=== PATIENT | female | born 1995 | race Caucasian/White ===

== ENCOUNTER 2023-09-01 14:23 | Outpatient (REF) | payer OTHER, SELFPAY ==
[2023-09-01 18:53] LABS: TSH reflex Free T4 1.83 uIU/mL (0.32-4.0)
== END 2023-09-01 14:24 | disposition home or self-care (01) ==
LOC: HO.CHCLDS 14:23
PROVIDERS: Visit Provider Advanced Practice Midwife
DX: Z12.4 Encounter for screening for malignant neoplasm of cervix (principal); R53.83 Other fatigue
CPT/HCPCS: 36415; 84443; 88142

== ENCOUNTER 2024-09-01 14:22 | Outpatient (REF) | payer OTHER, SELFPAY ==
[2024-09-01 18:00] LABS: Hematocrit 41.4 % (37.0-47.0); Mean Corpuscular HGB Conc 33.8 g/dl (31.0-35.0); Mean Corpuscular Hemoglobin 31.3 pg (27.0-33.0); Mean Corpuscular Volume 92.6 fL (80.0-98.0); Mean Platelet Volume 12.2 fL (9.4-12.3); Platelet Count 228 X10*3/uL (160-400); Red Blood Count 4.47 X10*6/uL (4.20-5.50); Red Cell Distribution Width 12.1 % (11.0-16.0); White Blood Count 7.3 X10*3/uL (4.8-10.8)
[2024-09-01 18:12] LABS: Iron 115 mcg/dL (30-160); Percent Iron Saturation 43 % (15-50); Total Iron Binding Capacity 269 mcg/dL (228-428); Unsaturated Iron Binding 154 ug/dL
--- OUTSIDE RECORDS SUMMARY | 2024-09-01 18:13 | XMS_ITS | Encounter Summary ---
Author Organization [employer] [facility] Address [address] [place] [address] [address] [place] [address] Care Team Providers Care Fitness Club Manager Name Role Phone Tri Perez MD Primary Care Provider [phone] Encounter Details Date Type Department Care Team (Latest Contact Info) Description 09/01/2024 Travel Social History Tobacco Use Types Packs/Day Years Used Date Smoking Tobacco: Never Smokeless Tobacco: Never Alcohol Use Standard Drinks/Week Comments Yes 0 (1 standard drink = 0.6 oz pur e alcohol) Comments No Sex and Gender Information Value Date Recorded Sex Assigned at Female 04/21/2022 10:30 AM EDT Legal Sex Female 10:30 AM EDT Gender Identity Female 04/21/2022 10:30 AM EDT Sexual Orientation Straight 04/21/2022 10 :30 AM EDT documented as of this encounter Plan of Treatment Upcoming Encounters Date Type Department Care Team (Late st Contact Info) Description 11/08/2024 2:45 PM EDT Office Visit [facility] & PEDS [address] [place] [address] Tri Perez MD [address] [place] [address] documented as of this encounter Visit Diagnoses Not on filedocumented in this encounter Care Teams Fitness Club Manager Relationship Specialty Start Date End Date Tri Perez MD [address] [place] [address] PCP - General Internal Medicine 03/20/16 documented as of this encounter
--- OUTSIDE RECORDS SUMMARY | 2024-09-01 18:13 | XMS_ITS | Encounter Summary ---
Author Organization [employer] [facility] Address [address] [place] [address] Care Team Providers Care Spray Rig Operator Name Role Phone Tri Perez MD Primary Care Provider [phone] [phone] Encounter Details Date Type Department Care Team (Late st Contact Info) Description 11/03/2022 Orders Only [facility] MED & PEDS [address] [place] [address] Fior Lenz LPN Social History Tobacco Use Types Packs/Day Years Used Date Smoking Tobacco: Never Assessed Comments Unknown Sex and Gender Information Value Date Recorded Sex Assigned at Female 04/21/2022 10:30 AM EDT Legal Sex Female 10:30 AM EDT Gender Identity Female 04/21/2022 10:30 AM EDT Sexual Orientation Straight 04/21/2022 10 :30 AM EDT documented as of this encounter Plan of Treatment Upcoming Encounters Date Type Department Care Team (Late st Contact Info) Description 11/08/2024 2:45 PM EDT Office Visit [facility] [address] [place] [address] Tri Perez MD [address] [place] [address] documented as of this encounter Visit Diagnoses Not on filedocumented in this encounter Care Teams Spray Rig Operator Relationship Specialty Start Date End Date Tri Perez MD [address] [place] [address] PCP - General Internal Medicine 03/20/16 documented as of this encounter
--- OUTSIDE RECORDS SUMMARY | 2024-09-01 18:13 | XMS_ITS | Clinical Summary ---
Author Organization [employer] Address [address] [place] [address] [address] [place] [address] Care Team Providers Care Farm Technician Name Role Phone Tri Perez MD Primary Care Provider [phone] Allergies Active Allergy Reactions Criticality Noted Date Comments Phenytoin 09/01/2023 Medications Tri-Sprintec 0.18/0.215/0.25 MG-35 MCG tablet TAKE 1 TABLET BY MOUTH EVERY DAY 84 tablet 2 11/03/2022 Active Tri-Sprintec 0.18/0.215/0.25 MG-35 MCG tablet Take 1 tablet by mouth in the morning. 28 tablet 11 09/01/2023 Active Encounters Date Type Department Care Team Description 09/01/2024 1:45 PM EDT Office Visit [facility] MED & PEDS [address] [place] [address] Saranya Merrill CNM Menorrhagia with regular cycle (Primary Dx) 09/01/2024 Travel 07/08/2024 Travel 07/08/2024 Telephone [facility] [address] [place] [address] Tri Perez MD recall appt from Last 3 Months Social History Tobacco Use Types Packs/Day Years [...] Orientation Straight 04/21/2022 10 :30 AM EDT Last Filed Vital Signs Vital Sign Reading Time Taken Comments Blood Pressure 116/76 09/01/2024 2:06 PM EDT Pulse 76 09/01/2024 2:06 PM EDT Temperature 37.1 ??C (98.8 ??F) 09/01/2024 2:06 PM ED T Respiratory Rate 18 09/01/2024 2:06 PM EDT Oxygen Saturation 98% 09/01/2024 2:06 PM EDT Inhaled Oxygen Concentration - - Weight 83.5 kg (184 lb) 09/01/2024 2:06 PM EDT Height 172.7 cm (5' 8 ) 09/01/2024 2:06 PM EDT Body Mass Index 27.98 09/01/2024 2:06 PM EDT Plan of Treatment Upcoming Encounters Date Type Department Care Team (Late st Contact Info) Description 11/08/2024 2:45 PM EDT Office Visit [facility] MED & PEDS [address] [place] [address] Tri Perez MD [address] [place] [address] Health Maintenance Due Date Last Done Comments Depression Screening 1995 HIV Screening 1995 SDOH Screening 1995 Alcohol/Substance Use Screening 2007 Hepatitis C Screening 2013 COVID-19 Vaccine ( season) 2024 04/22/2021, 07/02/2020, 06/11/2020 Family Planning (PISQ) 09/01/2025 09/01/2024 Tobacco Screening 09/01/2025 09/01/2024 Pap Smear 08/31/2026 09/01/2023, 08/21/2020 DTaP/Tdap/Td Vaccines (8 - Td or Tdap) 12/08/2028 12/08/2018, 10/19/2006, 04/25/1999, Additional history exists Zoster Vaccines (1 of 2) 2045 RSV Patients and Patients Aged 60 years or older (1 - 1-dose 75+ series) 2070 HIB Vaccines Completed 02/16/1996, 07/24, 1995, Additional history exists IPV Vaccines Completed 04/25/1999, 07/24, 1995, Additional history exists Hepatitis A Vaccines Completed 09/01/2011, 02/07/20 11 Meningococcal Vaccine Completed 05/06/2012, 010 Hepatitis B Vaccines Completed 12/15/2018, 1995, 1995, Additional history exists Influenza Vaccine Completed 03/25/2024, , 04/30/2021, Additional history exists HPV Vaccines Aged Out No longer eligi ble based on patient's age to complete this topic Pneumococcal Vaccine: Pediatrics (0 to 5 Years) and At-Risk Patients (6 to 49) Years) Aged Out No longer eligible based on patient's age to complete this topic RSV under 20 months Aged Out No longe r eligible based on patient's age to complete this topic Rotavirus Vaccines Aged Out No longer eligible based on patient's age to complete this topic Procedures Procedure Name Priority Date/Time Associated Diagnosis Comments CBC Routine 09/01/2024 2:23 PM EDT Menorrhagia with regular cycle PAP SMEAR Routine 09/01/2023 1:32 PM EDT Cervical cancer screening from Last 3 Months or Most Recently Relevant to Health Maintenance Results * CBC (09/01/2024 2:23 PM EDT) White Blood Count 7.3 4.8 - 10.8 X10*3/uL [facility] Red Blood Count 4.47 4.20 - 5.50 X10*6/uL [facility] Hemoglobin 14.0 12.0 - 16.0 g/dl [facility] Hematocrit 41.4 37.0 - 47.0 % [facility] Mean Corpuscular Volume 92.6 80.0 - 98.0 fL [facility] Mean Corpuscular Hemoglobin 31.3 27.0 - 33.0 pg [facility] Mean Corpuscular HGB Conc 33.8 31.0 - 35.0 g/dl [facility] Red Cell Distribution Width 12.1 11.0 - 16.0 % [facility] Platelet Count 228 160 - 400 X10*3/uL [facility] Mean Platelet Volume 12.2 9.4 - 12.3 fL [facility] NRBC Pct Auto 0.0 0.0 - 0.2 /100WBC [facility] NRBC Abs Auto 0.000 0.0 - 0.012 X10*3/uL [facility] Blood Venous blood specimen / Unknown 09/01/2024 2:23 PM EDT 09/01/2024 5:37 PM EDT Saranya Merrill CNM LAB BLOOD ORDERABLES Yovana muñoz Result [facility] [address] [place] [phone] * Pap Smear (09/01/2023 1:32 PM EDT) Swab Cervix uteri structure / Unknown 09/01/2023 1:32 PM EDT 09/02/2023 12:25 PM EDT Narrative [facility] - 09/10/2023 8:25 AM EDT ----- ------- Name: Kanwal Wilhelm ?Age/Sex: 28/F ? : 1995 Unit#: [id number] ?? Attend Dr: SARANYA MERRILL CNM ?Re09/01/23 ?Status: DEP REF ? [facility] ? Disch: ? ----- ------- SPEC : [id number] ? RECD: 09/02/23-1224 ? STATUS: ??SOUT ? REQ NUM: [id number] ? MIN: 09/01/23-2 ? SUBM DR: SARANYA MERRILL CNM ? ENTERED: ??09/02/23-1301 ?SP TYPE: Pap Smr ?OTHR : ? ORDERED: ??Pap Smear ? Interpretation ?? Satisfactory for evaluation. ?? Negative for intraepithelial lesion or malignancy. ?Clinical Information LMP: Unknown date Previous PAP test: Unknown date/findings ? Material Received ?? ThinPrep-Vaginal/Cervical ----- ------- Signed (signature on file) JEFF Bill ([facility]) 09/10/23 0825 ? ----- ------- ? END OF REPORT ? us Saranya Merrill [facility] CYTOLOGY ORDERABLES F inal Result [facility] [address] [place] [address] [phone] from Last 3 Months or Most Recently Relevant to Health Maintenance Insurance , [address] [place] [address] Care Teams Farm Technician Relationship Specialty Start Date End Date Tri Perez MD [address] [place] [phone] PCP - General Internal Medicine 03/20/16
--- OUTSIDE RECORDS SUMMARY | 2024-09-01 18:13 | XMS_ITS | Encounter Summary ---
Author Organization [employer] Address [address] [facility] 7t [place] [address] Care Team Providers Care Negative Turner Apprentice Name Role Phone Tri Perez MD Primary Care Provider [phone] Encounter Details Date Type Department Care Team (Late st Contact Info) Description 09/01/2024 1:45 PM EDT Office Visit [facility] & PEDS [address] [place] [address] Saranya Guidry, ANGELA [address] [place] [address] Menorrhagia with regular cycle (Primary Dx) Social History Tobacco Use Types Packs/Day Years [...] AM EDT documented as of this encounter Last Filed Vital Signs Vital Sign Reading [...] Mass Index 27.98 09/01/2024 2:06 PM EDT documented in this encounter Progress Notes * Saranya Brea, MIGUELINAM - 09/01/2024 1:45 PM EDT Subjective Patient ID: Kanwal Wilhelm is a 29 y.o. female who presents for PROSTHETIST visit Pap NIL 08/2023. Pap NIL, normal pelvic ultrasound 08/2020. Tri-Sprintec rx'd at that visit. She opted not to start. Cramping much improved with menses, still notes heavy bleeding x 2-3 days. Monthly menses x 5d. Normal TSH 08/2022. ? Multinodular thyroid. Had one ultrasound a year or two ago, will schedule CPE and followup with PCP. Known right breast fibroadenoma, previously followed by [facility], denies changes in breast exam. Declines CBE today. No vaginal/urinary symptoms. Not sexually active,no new partners since last visit with me. Not planning in the next year. Review of Systems Eyes: Negative for visual disturbance. Respiratory: Negative for shortness of breath. Cardiovascular: Negative for chest pain and leg swelling. Genitourinary: Positive for menstrual problem. Negative for dyspareunia, dysuria, frequency, genital sores, hematuria, pelvic pain, urgency, vaginal bleeding, vaginal discharge and vaginal pain. No abnormal pap, no abnormal bleeding, no breast pain, no breast mass, no nipple discharge Skin: Negative for color change. Neurological: Negative for headaches. Objective BP 116/76 (BP Location: Left arm, Patient Position: Sitting, BP Cuff Size: Adult) Pulse 76 Temp98.8 ??F (37.1 ??C) (Oral) Resp 18 Ht 5' 8 (1.727 m) Wt 184 lb (83.5 kg) SpO2 98% BMI 27.98 kg/m?? Physical Exam Constitutional: Appearance: Normal appearance. Neurological: Mental Status: She is alert. Psychiatric: Mood and Affect: Mood normal. Behavior: Behavior normal. Assessment/Plan Diagnoses and all orders for this visit: Menorrhagia with regular cycle - CBC; Future - Iron And Total Iron Binding Capacity; Future - Ferritin; Future Will screen for anemia. Declines oral contraceptive pill or other treatment at this time. Normal ultrasound and TSH previously. Pap 2025. Aware of condoms/EC. May call any time if interested in control. Hoping to start therapy soon to work on issues from previous relationships. Has names of therapistsfrom friends. Let me know if that doesn't work out, could have intake here. Please schedule physical with PCP. Report changes in breast exam. CBE and pelvic deferred today as asymptomatic. documented in this encounter Plan of Treatment Upcoming Encounters Date Type Department Care Team (Late st Contact Info) Description 11/08/2024 2:45 PM EDT Office Visit [facility] PED[facility] [address] [place] [address] Tri Perez MD [address] [place], [place] [phone] Scheduled Orders Name Type Priority Associated Diagnoses Orde r Schedule Iron And Total Iron Binding Capacity Lab Routine Menorrhagia with regular cycle Expected: 09/01/2024, Expires: 09/01/2025 Ferritin Lab Routine Menorrhagia with regular cycle Expected: 09/01/2024, Expires: 09/01/2025 documented as of this encounter Procedures Procedure Name Priority Date/Time Associated Diagnosis Comments CBC Routine 09/01/2024 2:23 PM EDT Menorrhagia with regular cycle documented in this encounter Results * CBC (09/01/2024 2:23 PM EDT) White Blood Count 7.3 4.8 - 10.8 X10*3/uL [facility] Red Blood Count 4.47 4.20 - 5.50 X10*6/uL [facility] Hemoglobin 14.0 12.0 - 16.0 g/dl [facility] Hematocrit 41.4 37.0 - 47.0 % [facility] Mean Corpuscular Volume 92.6 80.0 - 98.0 fL [facility] Mean Corpuscular Hemoglobin 31.3 27.0 - 33.0 pg [facility] Mean Corpuscular HGB Conc 33.8 31.0 - 35.0 g/dl [facility] Red Cell Distribution Width 12.1 11.0 - 16.0 % [facility] Platelet Count 228 160 - 400 X10*3/uL [facility] Mean Platelet Volume 12.2 9.4 - 12.3 fL [facility] NRBC Pct Auto 0.0 0.0 - 0.2 /100WBC [facility] NRBC Abs Auto 0.000 0.0 - 0.012 X10*3/uL [facility] Blood Venous blood specimen / Unknown 09/01/2024 2:23 PM EDT 09/01/2024 5:37 PM EDT us Saranya MCINTYRE LAB BLOOD ORDERABLES Yovana l Result [facility] [address] [place] [address] [phone] documented in this encounter Visit Diagnoses Diagnosis Menorrhagia with regular cycle- Primary documented in this encounter Care Teams Negative Turner Apprentice Relationship Specialty Start Date End Date Tri Perez MD [address] [place] [phone] PCP - General Internal Medicine 03/20/16 documented as of this encounter
--- OUTSIDE RECORDS SUMMARY | 2024-09-01 18:13 | XMS_ITS | Encounter Summary ---
Author Organization [employer] [facility] Address [address] [place] [address] Care Team Providers Care High School Auto Repair Teacher Name Role Phone Tri Perez MD Primary Care Provider [phone] Reason for Visit * Reason Comments Med Refill Encounter Details Date Type Department Care Team ([facility] Contact Info) Description 07/22/[address] [facility] MED & PEDS [address] [place] [address] Tri Perez MD [address] [place] [address] Social History Tobacco Use Types Packs/Day Years [...] Upcoming Encounters Date Type Department Care Team ([facility] Contact Info) Description 11/08/2024 2:45 PM EDT Office Visit [facility] MED & PEDS [address] [place] [address] Tri Perez MD [address] [place] [address] documented as of this encounter Visit Diagnoses Not on filedocumented in this encounter Care Teams High School Auto Repair Teacher Relationship Specialty Start Date End Date Tri Perez MD [address] [place] [address] PCP - General Internal Medicine 03/20/16 documented as of this encounter
--- OUTSIDE RECORDS SUMMARY | 2024-09-01 18:13 | XMS_ITS | Encounter Summary ---
Author Organization [employer] [facility] Address [address] [place] [address] Care Team Providers Care Ict Trainer Name Role Phone Tri Perez MD Primary Care Provider [phone] Reason for Visit * Reason Comments Med Refill Encounter Details Date Type Department Care Team ([facility] Contact Info) Description 07/13/2023 Refill [facility] MED & PEDS [address] [place] [address] Tri Perez MD [address] [place] [address] Social History Tobacco Use Types Packs/Day Years [...] Upcoming Encounters Date Type Department Care Team ([facility] Contact Info) Description 11/08/2024 2:45 PM EDT Office Visit [facility] MED & PEDS [address] [place] [address] Tri Perez MD [address] [place] [address] documented as of this encounter Visit Diagnoses Not on filedocumented in this encounter Care Teams Ict Trainer Relationship Specialty Start Date End Date Tri Perez MD [address] [place] [address] PCP - General Internal Medicine 03/20/16 documented as of this encounter
[2024-09-01 18:26] LABS: Ferritin 23 ng/mL (10-122)
== END 2024-09-01 14:23 | disposition home or self-care (01) ==
LOC: HO.CHCLDS 14:22
PROVIDERS: Visit Provider Advanced Practice Midwife
DX: N92.0 Excessive and frequent menstruation with regular cycle (principal)
CPT/HCPCS: 36415; 82728; 83540; 85027

== ENCOUNTER 2024-11-08 15:35 | Outpatient (REF) | payer OTHER, SELFPAY ==
--- OUTSIDE RECORDS SUMMARY | 2024-11-08 16:34 | XMS_ITS | Encounter Summary ---
Author Organization [employer] Address [address] [place] [address] Care Team Providers Care Desolderer Name Role Phone Tri Perez MD Primary Care Provider [phone] Reason for Visit * Reason Comments Med Refill Encounter Details Date Type Department Care Team ([facility] st Contact Info) Description 07/22/2023 Refill [facility] MED & PEDS [address] [place] [address] Tri Perez MD [address] [place] [address] Social History Tobacco Use Types Packs/Day Years Used Date Smoking Tobacco: Never Assessed Comments Unknown Sex and Gender Information Value Date Recorded Sex Assigned at Female 04/21/2022 10:30 AM EDT Legal Sex Female 10:30 AM EDT Gender Identity Female 04/21/2022 10:30 AM EDT Sexual Orientation Straight 04/21/2022 10 :30 AM EDT documented as of this encounter Plan of Treatment Not on file documented as of this encounter Visit Diagnoses Not on filedocumented in this encounter Care Teams Desolderer Relationship Specialty Start Date End Date Tri Perez MD [address] [place] [address] PCP - General Internal Medicine 03/20/16 documented as of this encounter
--- OUTSIDE RECORDS SUMMARY | 2024-11-08 16:34 | XMS_ITS | Encounter Summary ---
Author Organization [employer] Address [address] [place] [address] Care Team Providers Care Automotive Fuel Injection Servicer Name Role Phone Tri Perez MD Primary Care Provider [phone] Encounter Details Date Type Department Care Team (Late st Contact Info) Description 11/03/2022 Orders Only [facility] MED & PEDS [address] [place], [place] [phone] Fior Lenz LPN Social History Tobacco Use [...] on filedocumented in this encounter Care Teams Automotive Fuel Injection Servicer Relationship Specialty Start Date End Date Tri Perez MD [address] [place] [address] PCP - General Internal Medicine 03/20/16 documented as of this encounter
--- OUTSIDE RECORDS SUMMARY | 2024-11-08 16:34 | XMS_ITS | Encounter Summary ---
Author Organization [employer] Address [address] [place] [address] Care Team Providers Care Food Stylist Name Role Phone Tri Perez MD Primary Care Provider [phone] Reason for Referral * Imaging (Routine) - Authorized Specialty Diagnoses / Procedures Referred By Contac t Referred To Contact Radiology Diagnoses Thyromegaly Thyroid cyst Procedures US Thyroid Tri Perez MD [address] [place] [phone] Phone: tel: fax: [facility] [address] [place] [address], [address] [address] Phone: tel: fax: Referral ID Status Reason Start Date Expiration Date V isits Requested Visits Authorized [id number] Authorized 11/08/2024 11/08/2025 1 1 Reason for Visit * Reason Comments Annual Exam Encounter Details Date Type Department Care Team (Late st Contact Info) Description 11/08/2024 2:45 PM EDT Office Visit [facility] [address] [place], [place] [phone] Tri Perez MD [address] [place], [place] [phone] Thyromegaly (Primary Dx); Thyroid cyst; Other fatigue; Rosacea; Excessive cerumen in both ear canals Social History Tobacco Use Types Packs/Day Years Used Date Smoking Tobacco: Never Smokeless Tobacco: Never Alcohol Use Standard Drinks/Week Comments Yes 0 (1 standard drink = 0.6 oz pur e alcohol) Alcohol Answer Date Recorded Q1: How often do you have a drink containing alc ohol? 3 11/08/2024 Q2: How many drinks containi ng alcohol do you have on a typical day when you are drinking? 1 11/08/2024 Q3: How often do you have six or more drinks on one occasion? 3 11/08/2024 Depression Answer Date Recorded Patient Health Questionnaire-9 Score 3 11/08/2024 Patient Health Questionnaire-9 Score 3 11/08/2024 Last PHQ-9: Questionnaire Data Not on file 0 11/08/2024 Housing Stability Answer Date Recorded What is your housing situation today? I have cl العراقي 11/08/[address] you li ve. Do you have problems with any of the following? None of the above 11/08/2024 Food Insecurity Answer Date Recorded Within the past 12 months, y ou worried that your food would run out before you got money to buy more: Never True 11/08/2024 Within the past 12 months,th e food you bought just didn't last and you didn't have enough money to get more: Never True Transportation Answer Date Recorded In the past 12 months, has l ack of transportation kept you from medical appts, meetings, work or from getting things needed for daily living? No 11/08/2024 Utilities Answer Date Recorded In the past 12 months, has t he electric, gas, oil or water company threatened to shut off services in your home? No 11/08/2024 Depression Answer Date Recorded Patient Health Questionnaire-2 Score 1 11/08/2024 Internet Access Answer Date Recorded Internet Access Q1 Yes 11/08/2024 Internet Access Q2 Not on file 11/08/2024 Comments No Sex and Gender Information Value Date Recorded Sex Assigned at Female 04/21/2022 10:30 AM EDT Legal Sex Female 10:30 AM EDT Gender Identity Female 04/21/2022 10:30 AM EDT Sexual Orientation Straight 04/21/2022 10 :30 AM EDT documented as of this encounter Last Filed Vital Signs Vital Sign Reading Time Taken Comments Blood Pressure 126/76 11/08/2024 2:49 PM EDT Pulse 77 11/08/2024 2:49 PM EDT Temperature 36.8 ??C (98.3 ??F) 11/08/2024 2:49 PM ED T Respiratory Rate 20 11/08/2024 2:49 PM EDT Oxygen Saturation 98% 11/08/2024 2:49 PM EDT Inhaled Oxygen Concentration - - Weight 84.8 kg (187 lb) 11/08/2024 2:49 PM EDT Height 172.7 cm (5' 8 ) 11/08/2024 2:49 PM EDT Body Mass Index 28.43 11/08/2024 2:49 PM EDT documented in this encounter Functional Status * Audit-C Score Answer Date of Assessment Author 4 11/08/2024 3:08 PM EDT Tri Perez MD * Question Answer Date of Assessment Author Q1: How often do you have a drink containing alcohol? 2-4 times a month 11/08/2024 3:08 PM EDT Dav Perez MD Q2: How many drinks containing alcohol do you have on a typical day when you are drinking? 1 or 2 11/08/2024 3:08 PM EDT Dav Perez MD Q3: How often do you have six or more drinks on one occasion? Monthly 11/08/2024 3:08 PM EDT Dav Perez MD * Over the past 2 weeks, how often have you been bothered by any of the following problems? Question Answer Date of Assessment Author Patient Health Questionnaire-2 Score 1 10/21 2:54 PM EDT Ivy Villagran MA * Little interest or pleasure in doing things Answer Date of Assessment Author Not at all 11/08/2024 2:54 PM EDT Javan Villagran MA * Feeling down, depressed, or hopeless Answer Date of Assessment Author Several days 11/08/2024 2:54 PM EDT Javan Villagran MA * Trouble falling or staying asleep, or sleeping too much Answer Date of Assessment Author Not at all 11/08/2024 2:54 PM EDT Javan Villagran MA * Feeling tired or having little energy Answer Date of Assessment Author Not at all 11/08/2024 2:54 PM EDT Javan Villagran MA * Poor appetite or overeating Answer Date of Assessment Author Several days 11/08/2024 2:54 PM EDT Javan Villagran MA * Feeling bad about yourself - or that you are a failure or have let yourself or your family down Answer Date of Assessment Author Several days 11/08/2024 2:54 PM EDT Javan Villagran MA * Trouble concentrating on things, such as reading the newspaper or watching television Answer Date of Assessment Author Not at all 11/08/2024 2:54 PM EDT Javan Villagran MA * Moving or speaking so slowly that other people could have noticed? Or the opposite - being so fidgety or restless that you have been moving around a lot more than usual. Answer Date of Assessment Author Not at all 11/08/2024 2:54 PM EDT Javan Villagran MA * Thoughts that you would be better off or hurting yourself in some way Answer Date of Assessment Author Not at all 11/08/2024 2:54 PM EDT Javan Villagran MA * Patient Health Questionnaire-9 Score Answer Date of Assessment Author 3 11/08/2024 2:54 PM EDT Javan Villagran MA * How difficult have these problems made it for you to do your work, take care of things at home, or get along with other people? Answer Date of Assessment Author Not difficult at all 11/08/2024 2:54 PM EDT Ivy Juarez MA documented as of this encounter Plan of Treatment Scheduled Orders Name Type Priority Associated Diagnoses Orde r Schedule TSH W/Reflex to FT4 Lab Routine Thyromegaly Thyroid cyst Expected: 11/08/2024 (Approximate), Expires: 11/08/2025 Comprehensive Metabolic Panel Lab Routine Thyromegaly Thyroid cyst Expected: 11/08/2024 (Approximate), Expires: 11/08/2025 CBC auto differential Lab Routine Thyromegaly Thyroid cyst Expected: 11/08/2024 (Approximate), Expires: 11/08/2025 Vitamin D, 25-Hydroxy, Total, Immunoassay Lab Routine Thyromegaly Thyroid cyst Other fatigue Expected: 11/08/2024 (Approximate), Expires: 11/08/2025 Magnesium Lab Routine Thyromegaly Thyroid cyst Other fatigue Expected: 11/08/2024, Expires: 11/08/2025 Lipid Panel, Standard Lab Routine Thyromegaly Thyroid cyst Expected: 11/08/2024 (Approximate), Expires: 11/08/2025 US Thyroid Imaging Routine Thyromegaly Thyroid cyst Expected: 11/08/2024, Expires: 11/08/2025 documented as of this encounter Visit Diagnoses Diagnosis Thyromegaly- Primary Goiter, unspecified Thyroid cyst Cyst of thyroid Other fatigue Rosacea Excessive cerumen in both ear canals documented in this encounter Additional Health Concerns Assessment Noted Time PHQ-9 Depression Total Score: 3 11/09/19 25 2:54 PM EDT documented as of this encounter Care Teams Food Stylist Relationship Specialty Start Date End Date Tri Perez MD [address] [place] [phone] PCP - General Internal Medicine 03/20/16 documented as of this encounter
--- OUTSIDE RECORDS SUMMARY | 2024-11-08 16:34 | XMS_ITS | Encounter Summary ---
Author Organization [employer] Address [address] [facility] [address] [place] [address] Care Team Providers Care In Flight Refueling Operator Name Role Phone Tri Perez MD Primary Care Provider [phone] Encounter Details Date Type Department Care Team (Latest Contact Info) Description 11/08/2024 Travel Social History Tobacco Use Types Packs/Day [...] AM EDT documented as of this encounter Functional Status * Audit-C Score Answer Date of Assessment Author 4 11/08/2024 3:08 PM EDT Tri Perez MD * Question Answer Date of Assessment Author Q1: How often do you have a drink containing alcohol? 2-4 times a month 11/08/2024 3:08 PM DESIRET Dav Perez MD Q2: How many drinks containing alcohol do you have on a typical day when you are drinking? 1 or 2 11/08/2024 3:08 PM Dav Sexton MD Q3: How often do you have six or more drinks on one occasion? Monthly 11/08/2024 3:08 PM DESIRET Dav Perez MD * Over the past [...] Diagnoses Not on filedocumented in this encounter Additional Health Concerns Assessment Noted Time PHQ-9 Depression Total Score: 3 11/09/19 25 2:54 PM EDT documented as of this encounter Care Teams In Flight Refueling Operator Relationship Specialty Start Date End Date Tri Perez MD [address] [place] [address] [place] [phone] PCP - General Internal Medicine 03/20/16 documented as of this encounter
--- OUTSIDE RECORDS SUMMARY | 2024-11-08 16:34 | XMS_ITS | Encounter Summary ---
Author Organization [employer] Address [address] [place] [address] Care Team Providers Care Scoop Filler Name Role Phone Tri Perez MD Primary Care Provider [phone] Reason for Visit * Reason Comments Med Refill Encounter Details Date Type Department Care Team ([facility] st Contact Info) Description 07/13/2023 Refill [facility] PEDS [address] [place] [address] Tri Perez MD [address] [place] [address] Social History Tobacco Use Types Packs/Day Years [...] on filedocumented in this encounter Care Teams Scoop Filler Relationship Specialty Start Date End Date Tri Perez MD [address] [place] [address] PCP - General Internal Medicine 03/20/16 documented as of this encounter
--- OUTSIDE RECORDS SUMMARY | 2024-11-08 16:34 | XMS_ITS | Encounter Summary ---
Author Organization [employer] Address [address] [address] Care Team Providers Care Chrome Plater Helper Name Role Phone Tri Perez MD Primary Care Provider [phone] Reason for Visit * Reason Onset Date Comments Medication Question 11/08/2024 Encounter Details Date Type Department Care Team ([facility] Contact Info) Description 11/08/2024 Telephone [facility] MED & PEDS [address] [place] [address] Tri Perez MD [address] [place] [address] Medication Question Social History Tobacco Use Types Packs/Day Years [...] of Assessment Author 4 11/08/2024 3:08 PM Tri Sexton MD * Question Answer Date of Assessment Author Q1: How often do you have a drink containing alcohol? 2-4 times a month 11/08/2024 3:08 PM Dav Sexton MD Q2: How many drinks containing alcohol do you have on a typical day when you are drinking? 1 or 2 11/08/2024 3:08 PM Dav Sexton MD Q3: How often do you have six or more drinks on one occasion? Monthly 11/08/2024 3:08 PM Dav Sexton MD * Over the past 2 weeks, [...] of Assessment Author 3 11/08/2024 2:54 PM DESIRET Javan Villagran MA * How difficult have these problems made it for you to do your work, take care of things at home, or get along with other people? Answer Date of Assessment Author Not difficult at all 11/08/2024 2:54 PM EDT Ivy Juarez MA documented as of this encounter Miscellaneous Notes * Telephone Encounter - Néstor Muñoz - 11/08/2024 4:17 PM EDT TC from Roberta at [facility] pharmacy requesting a call back regarding placement of where pt should apply metroNIDAZOLE (Metrogel) 0.75 % gel , at time of use. Contact Roberta at [phone] documented in this encounter Plan of Treatment Not on file documented as of this encounter Visit Diagnoses Not on filedocumented in this encounter Additional Health Concerns Assessment Noted Time PHQ-9 Depression Total Score: 3 11/09/19 25 2:54 PM EDT documented as of this encounter Care Teams Chrome Plater Helper Relationship Specialty Start Date End Date Tri Perez MD [address] [place] [phone] PCP - General Internal Medicine 03/20/16 documented as of this encounter
--- OUTSIDE RECORDS SUMMARY | 2024-11-08 16:34 | XMS_ITS | Clinical Summary ---
Author Organization [employer] Address [address] [facility] [address] [place] [address] Care Team Providers Care Support Staff Name Role Phone Tri Perez MD Primary Care Provider [phone] Allergies Active Allergy Reactions Criticality Noted Date Comments Phenytoin 09/01/2023 Medications albuterol 108 (90 Base) MCG/ACT inhaler inhale 2 puff by inhalation route 30 minutes prior to exercise 11/23/19 21 Active metroNIDAZOLE (Metrogel) 0.75 % gelIndications :Excessive cerumen in both ear canals Apply topically 2 times daily. 45 g 1 11/09/19 25 026 Active carbamide peroxide (Debrox) 6.5 % otic solutionIndica tions:Rosacea Administer 5-10 drops into affected ear(s) 2 times daily for 4 days. 30 mL 11/09/19 25 025 Active Tri-Sprintec 0.18/0.215/0.2 5 MG-35 MCG tablet TAKE 1 TABLET BY MOUTH EVERY DAY 84 tablet 2 11/04/19 23 025 Discontinued(Th erapy completed) Tri-Sprintec 0.18/0.215/0.2 5 MG-35 MCG tablet Take 1 tablet by mouth in the morning. 28 tablet 11 09/01/19 24 025 Discontinued Active Problems Problem Noted Date Diagnosed Date Thyromegaly 11/08/2024 Thyroid cyst 11/08/2024 Encounters Date Type Department Care Team Description 11/08/2024 2:45 PM EDT Office Visit [facility] [address] [place], [place] [phone] Tri Perez MD Thyromegaly (Primary Dx); Thyroid cyst; Other fatigue; Rosacea; Excessive cerumen in both ear canals 11/08/2024 Telephone [facility] [address] [place] [address] Tri Perez MD Medication Question 11/08/2024 Travel 10/31/2024 Patient Outreach [facility] [address] [place], [place] [phone] Tri Perez MD Pre-visit Planning (Pre visit planning LVM ) 09/01/2024 1:45 PM EDT Office Visit [facility] [address] [place] [address] Saranya Merrill CNM Menorrhagia with regular cycle (Primary Dx) 09/01/2024 Travel from Last 3 Months Family History Medical History Relation Name Comments Colonic polyp Father Irregular heart beat Father Relation Name Status Comments Father Social History Tobacco Use Types Packs/Day Years [...] your housing situation today? I have cl malcom 11/08/[address] you li [...] Q2 Not on file 11/08/2024 Comments No Intention Date Recorded No desire to become (finding) 0 09/01/2024 Sex and Gender Information Value Date Recorded [...] Mass Index 28.43 11/08/2024 2:49 PM EDT Plan of Treatment Health Maintenance Due Date Last Done Comments HIV Screening 1995 Disability Screening 1995 Hepatitis C Screening 2013 COVID-19 Vaccine ( season) 2024 04/22/2021, 07/02/2020, 06/11/2020 Family Planning (PISQ) 09/01/2025 09/01/2024 Alcohol/Substance Use Screening 11/08/2025 11/08/2024 Depression Screening 11/08/2025 11/08/2024, 11/09/19 SDOH Screening 11/08/2025 11/08/2024 Tobacco Screening 11/08/2025 11/08/2024 Pap Smear 08/31/2026 09/01/2023, 08/21/2020 DTaP/Tdap/Td Vaccines [...] on patient's age to complete this topic Meningococcal B Vaccine Aged Out No l onger eligible based on patient's age to complete [...] Procedure Name Priority Date/Time Associated Diagnosis Comments FERRITIN Routine 09/01/2024 2:23 PM EDT Menorrhagia with regular cycle IRON AND TOTAL IRON BINDING CAPACITY Routine 09/01/2024 2:23 PM EDT Menorrhagia with regular cycle CBC Routine 09/01/2024 2:23 PM EDT Menorrhagia with regular cycle PAP SMEAR Routine 09/01/2023 1:32 PM EDT Cervical cancer screening from Last 3 Months or Most Recently Relevant to Health Maintenance Results * Iron And Total Iron Binding Capacity (09/01/2024 2:23 PM EDT) Iron 115 30 - 160 mcg/dL [facility] Total Iron Binding Capacity 269 228 - 428 mcg/dL [facility] Percent Iron Saturation 43 15 - 50 % [facility] Unsaturated Iron Binding 154 ug/dL [facility] Blood Venous blood specimen / Unknown 09/01/2024 2:23 PM EDT 09/01/2024 5:37 PM EDT us Saranya Merrill [facility] BLOOD ORDERABLES Yovana muñoz Result [facility] [address] [place] [phone] * CBC (09/01/2024 2:23 PM EDT) White Blood Count 7.3 4.8 - 10.8 X10*3/uL [facility] Red Blood Count 4.47 4.20 - 5.50 X10*6/uL [facility] Hemoglobin 14.0 12.0 - 16.0 g/dl [facility] Hematocrit 41.4 37.0 - 47.0 % [facility] Mean Corpuscular Volume 92.6 80.0 - 98.0 fL [facility] Mean Corpuscular Hemoglobin 31.3 27.0 - 33.0 pg [facility] Mean Corpuscular HGB Conc 33.8 31.0 - 35.0 g/dl [facility] Red Cell Distribution Width 12.1 11.0 - 16.0 % [facility] Platelet Count 228 160 - 400 X10*3/uL [facility] Mean Platelet Volume 12.2 9.4 - 12.3 fL [facility] NRBC Pct Auto 0.0 0.0 - 0.2 /100WBC [facility] NRBC Abs Auto 0.000 0.0 - 0.012 X10*3/uL [facility] Blood Venous blood specimen / Unknown 09/01/2024 2:23 PM EDT 09/01/2024 5:37 PM EDT [facility] Yovana l Result Performing Organization Address City/[facility]/ZIP Co de Phone Number [facility] [address] [place] [phone] * Ferritin (09/01/2024 2:23 PM EDT) Ferritin 23 10 - 122 ng/mL [facility] Blood Venous blood specimen / Unknown 09/01/2024 2:23 PM EDT 09/01/2024 5:37 PM EDT [facility] BLOOD ORDERABLES Yovana l Result Performing Organization Address [facility] Co de Phone Number [facility] [address] [place] [phone] * Pap Smear (09/01/2023 1:32 PM EDT) Swab Cervix uteri structure / Unknown 09/01/2023 1:32 PM EDT 09/02/2023 12:25 PM EDT Fay [facility] - 09/10/2023 8:25 AM EDT ----- ------- Name: Hartness,Kanwal ?Age/Sex: 28/F ? : 1995 Unit#: [id number] ?? Attend Dr: SARANYA MERRILL CNM ?Re09/01/23 ?Status: DEP REF ? Location: [facility] ? Disch: ? ----- ------- SPEC : [id number] ? RECD: 09/02/23-5 ? STATUS: ??SOUT ? REQ NUM: [id number] ? MIN: 09/01/23-2 ? SUBM DR: SARANYA MERRILL CNRee ? ENTERED: ??09/02/23-1301 ?SP TYPE: Pap Smr ?OTHR DR: ? ORDERED: ??Pap Smear ? Interpretation ?? Satisfactory for evaluation. ?? Negative for intraepithelial lesion or malignancy. ?Clinical Information LMP: Unknown date Previous PAP test: Unknown date/findings ? Material Received ?? ThinPrep-Vaginal/Cervical ----- ------- Signed (signature on file) JEFF Bill (ASCP) 09/10/23824 ? ----- ------- ? END OF REPORT ? Saranya Merrill [facility] CYTOLOGY ORDERABLES F inal Result [facility] [address] [place] [phone] from Last 3 Months or Most Recently Relevant to Health Maintenance Insurance [employer] [place] [employer] , [address] [address] Care Teams Support Staff Relationship Specialty Start Date End Date Tri Perez MD [address] [place] [phone] PCP - General Internal Medicine 03/20/16
[2024-11-08 18:19] LABS: MANUAL DIFF FLAG NO
[2024-11-08 18:24] LABS: Basophils Percent Auto 0.2 % (0-2); Eosinophils Percent Auto 0.6 % (0-4); Hematocrit 38.6 % (37.0-47.0); Hemoglobin 13.2 g/dl (12.0-16.0); Imm Gran Abs Auto 0.01 X10*3/uL (0.00-0.03); Imm Gran Pct Auto 0.2 % (0.0-0.4); Lymphocytes Absolute Auto 2.6 X10*3/uL (1.2-4.9); Lymphocytes Percent Auto 41.3 % (20-40); Mean Corpuscular HGB Conc 34.2 g/dl (31.0-35.0); Mean Corpuscular Hemoglobin 31.3 pg (27.0-33.0); Mean Corpuscular Volume 91.5 fL (80.0-98.0); Mean Platelet Volume 11.9 fL (9.4-12.3); Monocytes Absolute Auto 0.7 X10*3/uL (0.1-1.2); Monocytes Percent Auto 10.8 % (2-11); Neutrophils Percent Auto 46.9 % (45-73); Platelet Count 237 X10*3/uL (160-400); Red Blood Count 4.22 X10*6/uL (4.20-5.50); Red Cell Distribution Width 12.3 % (11.0-16.0); White Blood Count 6.4 X10*3/uL (4.8-10.8)
[2024-11-08 18:51] LABS: Alanine Aminotransferase 31 U/L (0-31); Albumin Level 3.7 g/dL (3.5-5.0); Alkaline Phosphatase 64 U/L (39-117); Anion Gap 9 (12-20); Aspartate Amino Transferase 29 U/L (5-31); Bilirubin Total 0.2 mg/dL (0.0-1.0); Blood Urea Nitrogen 14 mg/dL (9-16); Calcium 8.6 mg/dL (8.4-10.2); Carbon Dioxide 25 mmol/L (22-29); Chloride 109 mmol/L (96-108); Cholesterol 182 mg/dL (<200); Estimated Glomerular Filt Rate > 60; Glucose Random 102 mg/dL (60-115); HDL Cholesterol 62 mg/dL (>40); LDL Cholesterol Calculated 104 mg/dL (<100); Magnesium 1.9 mg/dL (1.6-2.6); Potassium 3.6 mmol/L (3.3-5.1); Sodium 139 mmol/L (135-145); Total Protein 6.9 g/dL (6.5-8.0); Triglycerides 80 mg/dL (<150)
[2024-11-08 18:56] LABS: TSH reflex Free T4 2.07 uIU/mL (0.32-4.0); Vitamin D 25-OH Total 62.9 ng/mL (>30)
== END 2024-11-08 15:36 | disposition home or self-care (01) ==
LOC: HO.CHCLDS 15:35
PROVIDERS: Visit Provider Internal Medicine
DX: E01.0 Iodine-deficiency related diffuse (endemic) goiter (principal); R53.83 Other fatigue
CPT/HCPCS: 36415; 80053; 80061; 82306; 83735; 84443; 85025